=== PATIENT | female | born 1990 | race American Indian/Alaskan Native ===

== ENCOUNTER 2019-01-12 09:00 | Outpatient (CLI) | payer OTHER ==
--- NOTE | 2019-01-12 09:43 | XRay Report ---
BILATERAL KNEES HISTORY: Diabetes and leg swelling. COMPARISON: None. TECHNIQUE: 4 views of both knees were obtained. FINDINGS: Bones: No fracture or dislocation. Mild osteopenia. Joint spaces: Maintained. Soft tissues: No significant abnormality. Additional findings: None. IMPRESSION: 1. No significant abnormality. Signer Name: Rm Segura MD Signed: 01/12/2019 10:38 AM Workstation Name: [id number]
== END 2019-01-12 09:01 | disposition home or self-care (01) ==
LOC: XRAY 09:00
PROVIDERS: ATTEND Internal Medicine
DX: Z02.71 Encounter for disability determination (principal); M85.861 Other specified disorders of bone density and structure, right lower leg; M85.862 Other specified disorders of bone density and structure, left lower leg; E11.40 Type 2 diabetes mellitus with diabetic neuropathy, unspecified